=== PATIENT | female | born 1985 | race American Indian/Alaskan Native ===

== ENCOUNTER 2016-07-19 11:53 | Outpatient (CLI) | payer MEDICAID ==
[2016-07-19] MEDS ORDERED: LACTATED RINGERS 500 ML IV ONE (12:02)
[2016-07-19 12:55] LABS: Hematocrit 32.8 % (30.3-42.9); Hemoglobin 10.9 gm/dl (10.1-14.3); Mean Corpuscular HGB Conc 33 % (30-34); Mean Corpuscular Hemoglobin 27 pg (28-32); Mean Corpuscular Volume 81 fl (79-97); Platelet Count 213 K/mm3 (140-440); Red Blood Count 4.07 M/mm3 (3.65-5.03); Red Cell Distribution Width 13.2 % (13.2-15.2); White Blood Count 8.3 K/mm3 (4.5-11.0)
[2016-07-19 12:56] LABS: Bilirubin,Urine NEG (Negative); Blood,Urine NEG (Negative); Ketones,Urine 80 mg/dL (Negative); Leukocyte Esterase,Urine TR (Negative); Nitrite,Urine NEG (Negative); Protein,Urine <15 mg/dL mg/dL (Negative); RBC,Urine < 1.0 /HPF (0.0-6.0)
[2016-07-19 13:17] LABS: Alanine Aminotransferase 30 units/L (7-56); Lactate Dehydrogenase 138 units/L (91-180); Uric Acid 5.3 mg/dL (3.5-7.6)
[2016-07-19 13:34] VITALS: BP 139/79
== END 2016-07-19 13:53 | disposition home or self-care (01) ==
LOC: TRG 11:53
PROVIDERS: ATTEND Obstetrics & Gynecology
DX: O47.03 False labor before 37 completed weeks of gestation, third trimester (principal); Z3A.36 36 weeks gestation of pregnancy
CPT/HCPCS: 36415; 59025; 81001; 82565; 82962; 83615; 84450; 84460; 84550; 85027; 96360; J7120